=== PATIENT | male | born 1965 | race African-American/Black ===

== ENCOUNTER 2017-04-09 00:45 | Emergency (ER) | payer SELFPAY ==
[~2017-04-09] VITALS: Ht 177.8 cm; Wt 95.0 kg
[2017-04-09] MEDS ORDERED: IBUPROFEN 600MG TABLET PO ONE (02:15)
[2017-04-09 05:45] VITALS: BP 135/72
== END 2017-04-09 06:28 | disposition home or self-care (01) ==
LOC: ER 00:52
DX: S43.102A Unspecified dislocation of left acromioclavicular joint, initial encounter (principal); V49.88XA Car occupant (driver) (passenger) injured in other specified transport accidents, initial encounter; Y93.89 Activity, other specified; Y92.89 Other specified places as the place of occurrence of the external cause; Y99.8 Other external cause status
CPT/HCPCS: 72040; 73030; 99284